=== PATIENT | female | born 1955 | race Caucasian/White ===

== ENCOUNTER 2017-08-19 18:55 | Emergency (ER) | payer MEDICARE, OTHER ==
[~2017-08-19 18:55] MED LIST: ISOVUE-370 76%-LOCM 1 ML ONE
[2017-08-19 19:22] LABS: Hemoglobin 4.9 g/dL (12.0-16.0); Mean Corpuscular HGB CONC 31.2 g/dL (32.0-36.0); Mean Corpuscular Hemoglobin 29.9 pg (27.0-31.0); Mean Corpuscular Volume 95.9 fl (81.0-99.0); Mean Platelet Volume 7.1 fL (7.4-10.4); Platelet Count 402 thou/uL (130-400); Red Blood Cell (RBC) Count 1.63 mill/uL (4.20-5.40); White Blood Cell (WBC) Count 9.8 thou/uL (4.8-10.8)
[2017-08-19 19:25] LABS: Base Excess-Venous -21.9 mmol/L (0 (+/- 2.5)); Bicarbonate (HCO3v) 6.7 mmol/L (1.0-85.0); CO2 Tension (PvCO2) 25.1 mmHg (41.0-51.0); Calcium, Ionized 1.04 mmol/L (1.12-1.32); Hemoglobin - Calc 4.8 g/dL (12.0-18.0); Lactate 3.43 mmol/L (0.50-2.20); O2 Tension (PvO2) 109.4 mmHg (35.0-45.0); Potassium 5.5 mmol/L (3.4-4.7); T. Carbon Dioxide 7.4 mmol/L (1.0-85.0); pH (Venous) 7.032 (7.35-7.45); vO2 Saturation-calc 95.2 % (94-98)
[2017-08-19 19:26] LABS: INR-International Normal Ratio 1.2; PTT 41.1 SEC (22.9-36.1); Prothrombin Time 15.6 SEC (12.0-14.7)
[2017-08-19 19:31] LABS: ALT (SGPT) 28 U/L (8-55); AST (SGOT) 26 U/L (5-34); Albumin 2.7 g/dL (3.4-4.8); Alkaline Phosphatase 216 U/L (40-150); Anion Gap 18 mmol/L (10-20); BUN (Urea Nitrogen) 112 mg/dL (9.8-20.1); Bilirubin, Total 0.3 mg/dL (0.2-1.2); Calc. Creatinine Clearance 0 mL/min (70-130); Calcium 7.8 mg/dL (7.8-10.44); Chloride 124 mmol/L (98-107); Estimated GFR-MDRD 8; Globulin 3.2 g/dL (2.4-3.5); Glucose 115 mg/dL (80-115); Potassium 5.4 mmol/L (3.5-5.1); Protein, Total 5.9 g/dL (6.0-8.3); Sodium 145 mmol/L (136-145)
[2017-08-19 19:35] LABS: Carbon Dioxide 8 mmol/L (23-31)
[2017-08-19 19:40] LABS: #Basophils 0.1 thou/uL (0.0-0.2); #Eosinphils 0.4 thou/uL (0.0-0.7); #Lymphocytes 1.5 thou/uL (1.20-3.40); #Monocytes 0.5 thou/uL (0.11-0.59); #Neutrophils 7.3 thou/uL (1.40-6.50); %Basophils 0.8 % (0.0-1.0); %Eosinophils 4.5 % (0.0-10.0); %Lymphocytes 15.2 % (21.0-51.0); %Monocytes 4.6 % (0.0-10.0); %Neutrophils 74.9 % (42.0-75.0); Acanthocytes SLIGHT = 1-5 cells (100X) (None Seen); Anisocytosis SLIGHT = 6-15 cells (100X) (0-5/hpf); Hypochromia SLIGHT = 6-15 cells (100X) (0-5/hpf); MDiff Complete? YES; Ovalocytes SLIGHT = 2-5 cells (100X) (0-1/hpf); PLT Morphology Comment Appears Increased
--- NOTE | 2017-08-19 19:48 | RAD ---
FRONTAL VIEW CHEST: INDICATIONS: Posttraumatic chest injury, pain. COMPARISON: No prior comparison. FINDINGS: There is patchy bilateral perihilar opacification. The cardiac silhouette is accentuated by the port able technique. No obvious pneumothorax within limitations. No discrete pleural fluid collection. No acute osseous abnormality visualized. IMPRESSION: Patchy bilateral perihilar opacities could relate to contusion or edema. POS: [facility]
--- NOTE | 2017-08-19 19:53 | CT ---
CT HEAD NONCONTRAST: INDICATIONS: Fall with seizure. COMPARISON: No prior imaging comparison available. FINDINGS: Evidence of right-sided pterional craniotomy with underlying extensive white matter hypoattenuation, incompletely assessed by noncontrast CT. Suggestion of an extraaxial mass at the right middle cranial fossa. Correlate with surgical history and the patient's clinical history. There is a slight degre e of leftward subfalcine herniation, as well as ventricular effacement, as a result of the hypodensit y centered within the right cerebral hemisphere, underlying the above described calvarial operative c hanges. Streak artifact is present, which limits intracranial visualization. No obvious acute intra cranial hemorrhage. There is a left frontal scalp hematoma. There is evidence of encephalomalacia i nvolving the right basal ganglia. The patient is intubated. There is scattered paranasal sinus opac ification. IMPRESSION: Postoperative changes of right calvarium with underlying prominent hypodensity of the right cerebral hemisphere, which does result in mild mass effect and leftward subfalcine herniation. The degree of midline shift at the level of the septum pellucidum, to the left of midline, is approximately 6 mm. T here is a probable extraaxial mass at the right middle cranial fossa. Recommend neurosurgical evaluat ion, as acuity of findings is not discerned on the basis of this exam, without prior comparisons crystal varela. POS: [facility]
[2017-08-19 20:00] LABS: Troponin I Less than 0.010 ng/mL (< 0.028)
[2017-08-19 20:04] LABS: CKMB 20.6 ng/mL (0-6.6)
--- NOTE | 2017-08-19 20:09 | CT ---
CERVICAL SPINE CT NONCONTRAST: INDICATIONS: Neck injury. Pain. FINDINGS: Diffuse, multifocal, erosive lucencies of the cervical spine vertebrae are present, involving anterio r and posterior elements, spanning the C1 through C7 level. Erosive irregularity is more pronounced involving the right facet joints of the C2-C3 and C3-C4 levels. No pathologic compression or signifi cant malalignment. Incidental note of partially imaged patchy areas of parenchymal opacity at each lung apex, as well as pleural fluid. Soft tissue stranding of the imaged mediastinum is partially imaged and incompletely assessed. There is incidental note of a sclerotic focus of the posterior elements of T2, to the left of midline . IMPRESSION: Findings which indicate either diffuse osseous metastatic disease, or erosive/infectious arthropathy of the imaged cervical spine. This should be further discerned with clinical correlation. Recommend correlation with prior imaging, if available. Notification of findings placed at 2001 hours on 08/19/2017. CODE CR POS: [facility]
[2017-08-19] MEDS ORDERED: Piperacillin/Tazobactam 3.375 GM VIAL ONE (20:18)
[2017-08-19] MEDS ORDERED: Magnesium Sulfate 2 GM/100 ML BAG ONE (20:18)
[2017-08-19] MEDS ORDERED: Sodium Bicarb 50 MEQ/50 ML Abboject 8.4% SYRINGE ONE (20:18)
[2017-08-19] MEDS ORDERED: Sodium Bicarbonate 2.5 MEQ/5 ML VIAL ONE (20:18)
--- NOTE | 2017-08-19 20:19 | CT ---
CT CHEST WITH CONTRAST: CT ABDOMEN AND PELVIS WITH CONTRAST: CT THORACIC SPINE WITH CONTRAST AND REFORMATTED IMAGING: CT LUMBAR SPINE WITH CONTRAST AND REFORMATTED IMAGING: CLINICAL HISTORY: Altered mental status. Trauma. Seizure activity. Fall. FINDINGS: There is diffuse soft tissue edema throughout the body wall, compatible with anasarca, in addition to bilateral moderate pleural effusions and abdominal and pelvic ascites. There is severe right hydron ephrosis with prominent right renal parenchymal attenuation, compatible with a chronic obstructive pr ocess. There is mild prominence of the left renal collecting system. Multifocal punctate hypodensit ies are seen within each renal parenchyma. Mild nonspecific generalized heterogeneity of the hepatic parenchyma is present. There are splenic calcifications. No discrete adrenal lesion or pancreatic lesion. There is focal prominence of the anterior wall of the rectosigmoid colon, nonspecific. Ther e is adjacent dependent fluid of the pelvis, tracking along the right lateral pelvic cul-de-sac. The urinary bladder wall is thickened. No aneurysmal dilatation of the thoracoabdominal aorta. There a re multifocal ground glass nodular opacities of the lungs bilaterally. Dense consolidation containin g air bronchograms is also present, which involves the left lower lobe. There are mildly enlarged me diastinal lymph nodes. Evaluation of the thoracolumbar spine reveals degenerative change without com pression fracture or subluxation. Endplate sclerosis and presumed Schmorl's node formation is presen t at the mid to lower lumbar spine. IMPRESSION: 1. Anasarca. 2. Severe right and mild left hydronephrosis with chronic appearing changes of the renal parenchyma bilaterally. Correlate with the patient's renal function. 3. Multifocal ground glass nodular opacities of the lungs bilaterally, which may be on the basis of atypical infection. The possibility of neoplasm is not excluded. There is also dense consolidation of the left lung. 4. Prominent urinary bladder wall thickening. There is abnormal prominence of the anterior wall of the rectosigmoid colon, just posterior to the inferior aspect of the urinary bladder, along with inse parable prominent fluid of the posterior right pelvis. Underlying colonic mass cannot be excluded. Focal colitis is an additional consideration. 5. Mottled appearance of the hepatic parenchyma. Correlate clinically to exclude evidence of hepato cellular disease. Notification of findings placed at 2001 hours on 08/19/2017. CODE CR POS: [facility]
[2017-08-19] MEDS ORDERED: Piperacillin/Tazobactam 3.375 GM in Sodium Chloride 0.9% 100 ML IVPB ONE (20:30)
[2017-08-19] MEDS ORDERED: Vancomycin HCl 1 GM in Premix Bag 1 BAG IVPB ONE (20:30)
[2017-08-19 21:05] LABS: Bilirubin Negative (Negative); Blood, Urine Small (Negative); Clarity CLOUDY (Clear); Glucose, Urine (Dipstick) Negative (Negative); Leukocyte Negative (Negative); Nitrite Negative (Negative); Protein, Urine (Dipstick) 300 mg/dL (Neg-Trace); Specific Gravity, Urine 1.017 (1.002-1.036); Urobilinogen 0.2 mg/dL (0.2-1.0); pH, Urine 5.5 (5.0-9.0)
[2017-08-19 21:06] LABS: Bacteria/HPF None Seen HPF (None Seen); Hyaline Casts/LPF 0-3 HYALINE CAST LPF (0-3 Hyaline); Pathc Cast-AUWi Flag 0.58 (0-2.49); RBC/HPF 0-3 HPF (0-3); WBC/HPF 0-3 HPF (0-3)
--- NOTE | 2017-08-20 07:17 | HP ---
HISTORY OF PRESENT ILLNESS: Ms. Cotton is a 62-year-old white female. I was called to see her in [facility] emergency room on the evening of 08/19/2017 as a level 1 trauma activation. She had a decreased l evel of consciousness when she was found down at her senior care. Upon my arrival, she actually has a history of a seizure disorder and the fact that she was found down on the floor was likely relativ e to a seizure. The patient also has a recognized out of hospital DNR order. Her family was contact ed and they requested this be honored. The patient was already in hospice. Additionally, the patien luis was given Ativan, 2 mg, in the field which led to significant further lethargy. In summary, she did not appear to be a trauma patient. She did not appear to meet criteria for level 1 activation, and there was no intervention that could be performed to improve what was going on wit h her as only comfort care had been requested by the family. I therefore turned further care of this patient back over to the emergency room department and did not perform a full trauma evaluation.
== END 2017-08-19 23:32 ==
LOC: ERS 18:55
DX: E87.5 Hyperkalemia (principal); E87.2 Acidosis; R41.82 Altered mental status, unspecified; N17.9 Acute kidney failure, unspecified; I10 Essential (primary) hypertension; F31.9 Bipolar disorder, unspecified; F25.9 Schizoaffective disorder, unspecified; E03.9 Hypothyroidism, unspecified; D64.9 Anemia, unspecified; Z79.899 Other long term (current) drug therapy
CPT/HCPCS: 36415; 36416; 51701; 70450; 71045; 71260; 72125; 74177; 80053; 80185; 81003; 81015; 82330; 82553; 82803; 83605; 83735; 84443; 84484; 85025; 85610; 85730; 86850; 86870; 86900; 86901; 86905; 87040; 87086; 93005; 94760; 96365; 96367; 96375; 99292; A4353; J1953; J2543; J3370; J3475; J7050